=== PATIENT | female | born 1955 | race Caucasian/White ===

== ENCOUNTER 2019-08-17 20:48 | Inpatient (IN) | payer MEDICARE, SELFPAY ==
[2019-08-17 20:58] VITALS: BP 149/74; PULSE 76; RESP 18; TEMP 36.8; O2SAT 99; BMI 42.7
--- NOTE | 2019-08-17 21:02 | W.ED.CHESTPA ---
HPI - Chest Pain General: Chief Complaint: Chest Pain Stated Complaint: CHEST PAIN Time Seen by Provider: 08/17/19 20:51 History of Present Illness: HPI narrative: 63 yo female who presents to the emergency room via EMS with a complaint of chest pain. Couple of days ago she had an episode of chest pain that was very brief she took a sublingual nitro and it resolved in about 10 minutes. She had another episode this morning that resolved after 2 nitro and 20 minutes. Throughout the day she seemed to be okay and then had a third episode this evening she had no relief with nitro ambulance came and they gave her aspirin and 2 more nitro and then eventually the pain went away but she still has a sense of heaviness in her chest. She is diabetic has sleep apnea and is previously had known coronary artery disease she has had stents in the past. She sees a animal rescuer in [place] said she seen him last about a year ago and had an angiogram but there was no intervention. She is not had a stress test since then. She had radiation of the pain into her back up into her jaw and arms, no dyspnea or diaphoresis. All of these episodes have increased in intensity per her report. Associated symptoms: Deny abdominal pain, dyspnea, fever(s), nausea or vomiting Review of Systems Const: Denies: fever, chills, body aches, change in appetite, fatigue or malaise ENMT: Denies: throat pain, ear pain, nasal discharge or nasal congestion Card: Reports: chest pain and shortness of breath on exertion; Denies: edema or shortness of breath when lying down Resp: Denies: shortness of breath, productive cough or non-productive cough GI: Denies: abdominal pain, nausea, vomiting, vomiting blood, coffee grounds in vomit, diarrhea, constipation, bloating, blood in stool or black tarry stool : Denies: flank pain, difficulty urinating, painful urination, urinary frequency or urinary urgency Skin/Breast: Denies: rash or itching [facility] ED PFSH: Medical History (Updated 08/19/19 @ 07:11 by Donta Figueroa DO) Biventricular ICD (implantable cardioverter-defibrillator) in place COPD (chronic obstructive pulmonary disease) Coronary artery disease Diabetes mellitus Hyperlipidemia Hypertension Morbid obesity Pacemaker Surgical History (Updated 08/17/19 @ 23:24 by Cameron Bob MD) History of cholecystectomy History of heart artery stent Family History (Updated 08/17/19 @ 23:24 by Cameron Bob MD) Other CAD (coronary artery disease) Social History (Updated 08/17/19 @ 23:24 by Cameron Bob MD) Smoking and tobacco status: former smoker Alcohol intake: never Substance/Drug Use: never Physical Exam Const: COMMON NORMALS: no apparent distress GENERAL APPEARANCE: cooperative and comfortable ORIENTATION/CONSCIOUSNESS: Yes awake, Yes oriented to person, Yes oriented to place and Yes oriented to time HENMT: COMMON NORMALS: normocephalic, head/scalp atraumatic, hearing grossly normal bilaterally, external ears normal, EAC's normal, TM's normal bilaterally, nasal mucous membranes and turbinates normal, moist oral mucous membranes and oropharynx normal HEAD & SCALP: normocephalic and atraumatic NOSE: nasal mucous membranes and turbinates normal EXTERNAL EAR: Yes external ears normal EXTERNAL AUDITORY CANAL: EAC's normal TYMPANIC MEMBRANE: TM's normal bilaterally Eye: COMMON NORMALS: PERRL, EOMs intact bilaterally, conjunctivae normal and no scleral icterus CONJUNCTIVA: Yes conjunctivae normal PUPIL: Yes PERRL Neck/C-Spine: COMMON NORMALS: full ROM, no lymphadenopathy, supple and no JVD Lymph: LYMPHATIC: no lymphadenopathy noted and no lymphedema noted Resp: COMMON NORMALS: normal respiratory effort, no retractions, no use of accessory muscles and clear to auscultation bilaterally AUSCULTATION: clear to auscultation bilaterally Cardio: COMMON NORMALS: no JVD, regular rate, regular rhythm and no murmurs RATE: regular rate RHYTHM: regular rhythm GI: COMMON NORMALS: soft to palpation and no hepatosplenomegaly AUSCULTATION: Yes normoactive bowel sounds PALPATION: Yes soft, No tender, No guarding and Yes no hepatosplenomegaly Extremity: COMMON NORMALS: normal to inspection, normal capillary refill, no clubbing, cyanosis or edema, no calf tenderness and no pedal edema Neuro: SENSORIUM/ORIENTATION: Yes oriented to person, Yes oriented to place and Yes oriented to time Skin: COMMON NORMALS: no rashes or lesions noted GENERAL SKIN EXAM: no rashes or lesions noted Course Vital Signs: Vital signs: Vital Signs Temperature 97.8 F 08/19/19 04:00 Pulse Rate 61 08/19/19 04:00 Respiratory Rate 16 08/19/19 04:00 Blood Pressure 112/69 08/19/19 04:00 Pulse Oximetry 93 08/19/19 04:00 MDM - Chest Pain MDM Narrative: Medical decision making narrative: We will go ahead and admit for atypical chest pain given her known history of coronary disease and relief of symptoms with nitro, additionally she has been having the symptoms at rest and the degree of intensity has been increasing. Lab Data: Labs: Lab Results 08/17/19 08/17/19 08/17/19 Range/Units 21:06 21:06 21:06 WBC 6.2 (4.0-10.0) 10^3/ uL RBC 3.51 L (4.1-5.3) 10^6/u L Hgb 10.1 L (11.5-15.3) g/dL Hct 30.9 L (37.0-47.0) % MCV 88.0 (81-99) fL MCH 28.8 (28.0-34.0) pg MCHC 32.7 (30.0-36.0) g/dL RDW 14.1 (12.1-15.1) % Plt Count 144 (130-400) 10^3/c mm MPV 10.9 H (7.4-10.4) fL Neut % (Auto) 58.5 % Lymph % (Auto) 30.6 % [place] % (Auto) 8.1 % Eos % (Auto) 1.6 % Baso % (Auto) 0.6 % Neut # (Auto) 3.6 (1.8-7.7) 10^3/u L Lymph # (Auto) 1.9 (0.8-4.8) 10^3/u L [place] # (Auto) 0.5 (0.2-0.9) 10^3/u L Eos # (Auto) 0.1 (0.0-0.8) 10^3/u L Baso # (Auto) 0.0 (0.0-0.1) 10^3/u L Nucleated RBC % (a uto) 0 % Nucleated RBCs # 0.0 /100WBC Sodium 139 (136-145) mmol/L Potassium 3.5 (3.5-5.1) mmol/L Chloride 99 (98-107) mmol/L Carbon Dioxide 28 (22-29) mmol/L Anion Gap 15.5 (5-19) BUN 9 (8-23) mg/dL Creatinine 0.9 (0.5-0.9) mg/dL GFR Calculation 63.2 L (90-130) mL/min Glucose 136 H (65-115) mg/dL Calculated Osmolal ity 286 (285-295) mOsm/k g Calcium 8.7 (8.5-10.5) mg/dL Total Bilirubin 1.0 (0.15-1.2) mg/dL AST 87 H (0-32) U/L ALT 60 H (0-33) U/L Alkaline Phosphata se 70 (35-105) IU/L Troponin T Baselin e 15 H (0-10) ng/mL NT-Pro-B Natriuret Pep (0-125) pg/mL Total Protein 6.8 (6.6-8.7) g/dL Albumin 3.8 (3.5-5.2) g/dL Globulin 3.0 (1.3-4.6) g/dL 04/18/20 Range/Units 21:06 WBC (4.0-10.0) 10^3/ uL RBC (4.1-5.3) 10^6/u L Hgb (11.5-15.3) g/dL Hct (37.0-47.0) % MCV (81-99) fL MCH (28.0-34.0) pg MCHC (30.0-36.0) g/dL RDW (12.1-15.1) % Plt Count (130-400) 10^3/c mm MPV (7.4-10.4) fL Neut % (Auto) % Lymph % (Auto) % [place] % (Auto) % Eos % (Auto) % Baso % (Auto) % Neut # (Auto) (1.8-7.7) 10^3/u L Lymph # (Auto) (0.8-4.8) 10^3/u L [place] # (Auto) (0.2-0.9) 10^3/u L Eos # (Auto) (0.0-0.8) 10^3/u L Baso # (Auto) (0.0-0.1) 10^3/u L Nucleated RBC % (a uto) % Nucleated RBCs # /100WBC Sodium (136-145) mmol/L Potassium (3.5-5.1) mmol/L Chloride (98-107) mmol/L Carbon Dioxide (22-29) mmol/L Anion Gap (5-19) BUN (8-23) mg/dL Creatinine (0.5-0.9) mg/dL GFR Calculation (90-130) mL/min Glucose (65-115) mg/dL Calculated Osmolal ity (285-295) mOsm/k g Calcium (8.5-10.5) mg/dL Total Bilirubin (0.15-1.2) mg/dL AST (0-32) U/L ALT (0-33) U/L Alkaline Phosphata se (35-105) IU/L Troponin T Baselin e (0-10) ng/mL NT-Pro-B Natriuret Pep 717 H (0-125) pg/mL Total Protein (6.6-8.7) g/dL Albumin (3.5-5.2) g/dL Globulin (1.3-4.6) g/dL Discharge Plan Discharge Patient Disposition: Admitted As Inpatient Admit Provider: Cameron Bob Clinical Impression: Chest pain, Coronary artery disease, Diabetes mellitus, COPD (chronic obstructive pulmonary disease), Hypertension Condition: Stable Interventions: ED Discharge Assessment Last Done: 08/17/19 22:35 Discharge Date/Time: 08/17/19 22:36 Coding Level of Care Code ED Training Systems Officer for [facility] Fwd Exam Comprehensive
--- NOTE | 2019-08-17 21:03 | XRR_ITS ---
PROCEDURE INFORMATION: Exam: XR Chest, 1 View Exam date and time: 08/17/2019 9:13 PM Age: 63 years old Clinical indication: Cough and dyspnea; Additional info: Dyspnea/cough TECHNIQUE: Imaging protocol: XR of the chest Views: 1 view. COMPARISON: No relevant prior studies available. FINDINGS: Tubes, catheters and devices: AICD. Lungs: COPD, interstitial prominence, and mild basilar airspace disease. Pleural space: Questionable small left pleural effusion. Heart/Mediastinum: Borderline cardiomegaly. Bones/joints: Mild degenerative change. XR/XR chest 1V portable [id number] IMPRESSION: COPD, interstitial prominence, and mild basilar airspace disease.
[2019-08-17] MEDS: nitroglycerin 1 gm/inch oint Pkt 1 INCH TOPICAL (21:09)
[2019-08-17 21:19] LABS: Basophils % 0.6 %; Eosinophils # 0.1 10^3/uL (0.0-0.8); Eosinophils % 1.6 %; Hematocrit 30.9 % (37.0-47.0); Hemoglobin 10.1 g/dL (11.5-15.3); Lymphocytes # 1.9 10^3/uL (0.8-4.8); Lymphocytes % 30.6 %; Mean Corpuscular HGB Conc 32.7 g/dL (30.0-36.0); Mean Corpuscular Hemoglobin 28.8 pg (28.0-34.0); Mean Platelet Volume 10.9 fL (7.4-10.4); Monocytes # 0.5 10^3/uL (0.2-0.9); Monocytes % 8.1 %; Neutrophils # 3.6 10^3/uL (1.8-7.7); Neutrophils % 58.5 %; Nucleated Red Blood Cells % 0 %; Platelet Count 144 10^3/cmm (130-400); Red Blood Count 3.51 10^6/uL (4.1-5.3); Red Cell Distribution Width 14.1 % (12.1-15.1); White Blood Count 6.2 10^3/uL (4.0-10.0)
[2019-08-17 21:34] LABS: Alanine Aminotransferase 60 U/L (0-33); Albumin Level 3.8 g/dL (3.5-5.2); Alkaline Phosphatase 70 IU/L (35-105); Anion Gap 15.5 (5-19); Aspartate Amino Transferase 87 U/L (0-32); Blood Urea Nitrogen 9 mg/dL (8-23); Calcium 8.7 mg/dL (8.5-10.5); Carbon Dioxide 28 mmol/L (22-29); Chloride 99 mmol/L (98-107); Glomerular Filtration Rate 63.2 mL/min (90-130); Glucose 136 mg/dL (65-115); Osmolality Calculated 286 mOsm/kg (285-295); Potassium 3.5 mmol/L (3.5-5.1); Sodium 139 mmol/L (136-145); Total Protein 6.8 g/dL (6.6-8.7)
[2019-08-17 21:35] LABS: Troponin(5th) Baseline 15 ng/mL (0-10)
--- NOTE | 2019-08-17 22:31 | PC.NURSE ---
Called report to Christel on Med-Surg
[2019-08-17 22:35] VITALS: BP 148/101; PULSE 73; RESP 20; O2SAT 99
[2019-08-17 22:48] VITALS: BP 158/92; PULSE 69; RESP 18; TEMP 36.9; O2SAT 98
[2019-08-17 23:00] VITALS: RESP 20
--- NOTE | 2019-08-17 23:03 | ECG_ITS ---
Measurements Intervals [place] Rate: 69 P: 64 [place]: 142 QRS: 76 QRSD: 125 T: 38 QT: 436 QTc: 470 ELECTRONIC VENTRICULAR PACEMAKER ABNORMAL RHYTHM ECG No previous ECG available for comparison Electronically Signed On 08-18-2019 12:25:18 CDT by Marnie Lovett M.D. [id number]
--- NOTE | 2019-08-17 23:12 | P.HP_ITS ---
Providers/Chief Complaint Admitting Physician: Cameron Bob MD Chief Complaint: CHEST PAIN History of Present Illness Arlene Castillo is a 63 year old female with a past medical history of CAD status post stenting x2, first stent was in 2001 for diagonal artery, second cardiac catheterization in 2011 with severe in-stent stenosis in the first diagonal artery with stenting again which I presume? (Is not clear on cardiac catheter report), mild to moderate disease in the mid LAD, codominant left circumflex artery. She has a history of CHF, last ejection fraction 35%, status post ICD and pacemaker placement, pacemaker placement for V. tach, [id number]-[id number] type 2 diabetes mellitus, 2 L oxygen pendant for COPD, hypertension, hyperlipidemia, who presents to the emergency room due to complaints of chest pain. Patient states that she has been having on and off chest pain for the last 6 months, she sees a drill runner helper in [place], last seen about 6 months ago, they were plans on doing an outpatient stress test and echocardiogram in September. Patient states that this morning, at roughly 10 AM, she was taking her medications, when she start developed left-sided substernal chest pain sharp, pressure-like, which radiated to her left neck, left jaw, lasted about 15 minutes, relieved with nitro, associated lightheadedness. Patient had another episode of chest pain at roughly 7 PM tonight, again left-sided, substernal, rating to the left jaw, left neck, now also down the left arm, this time she took 2 nitros with significant reduction of the pain but it persisted, so she called her daughter who told her to call 911, when EMS arrived she received another nitroglycerin, still has some lingering chest pain in the EMS, received 325 mg of aspirin, when she arrived in the emergency room, was still having some persistent left-sided chest pain so she was put on a nitro paste, and her symptoms abated. Currently is symptom-free. Patient states that her chest pain seems similar to when she had her stents placed, but her chest pain is never radiated to the neck or the jaw which is new. Patient states that she has a history of heart failure, at baseline she is short of breath less than 50 feet, recently she has been feeling more short of breath than her usual, no lower extremity edema, no cough, no fevers, no orthopnea, no paroxysmal nocturnal dyspnea, no travel, known exposure to covid19. Patient does have a pacemaker placement for V. tach, states that last time she saw her drill runner helper, they interrogated the pacemaker, and found she had a couple of V. tach episodes that did not meet criteria for shocking, no history of shocking, no history of palpitations, no lightheadedness Review of Systems Const: Denies: fever, chills, fatigue or malaise Eyes: Denies: change in vision or blurry vision ENMT: Denies: nasal congestion Card: Reports: chest pain, lightheadedness and shortness of breath on exertion; Denies: palpitations, irregular heart rhythm, edema or syncope Resp: Denies: shortness of breath, productive cough, non-productive cough or wheezing GI: Denies: abdominal pain, nausea, vomiting, vomiting blood, diarrhea, constipation, blood in stool or black tarry stool : Denies: flank pain, painful urination or urinary frequency Musc: Denies: neck pain or back pain Skin/Breast: Denies: rash Neuro: Denies: headache, dizziness or vertigo Psych: Denies: anxiety or depression Endo: Denies: excessive urination or excessive thirst Medications/Allergies Home Medications Medication Instructions Recorded Confirmed Last Taken Type Unable to Assess 08/17/19 08/17/19 Unknown History Allergies Allergy/AdvReac Type Severity Reaction Status Date / Time codeine Allergy Unknown Verified 08/17/19 21:02 Additional Medication Information Additional Medication Information: Aspirin 81 mg once daily Lipitor 40 mg p.o. bedtime Celexa 20 mg p.o. twice daily Vitamin B12 thousand micrograms once daily Lasix 40 mg p.o. daily Gabapentin 300 mg 3 times daily Lisinopril hydrochlorothiazide 20 25 mg p.o. daily Lisinopril 10 mg daily Metoprolol succinate 100 mg daily Singulair 10 mg p.o. every afternoon Prilosec Albuterol Vitamin D, vitamin D3, vitamin C, fish oil, omega-3 PFSH Acute PFSH: Medical History (Updated 08/17/19 @ 23:27 by Cameron Bob MD) Biventricular ICD (implantable cardioverter-defibrillator) in place COPD (chronic obstructive pulmonary disease) Coronary artery disease Diabetes mellitus Hyperlipidemia Hypertension Pacemaker Surgical History (Updated 08/17/19 @ 23:24 by Cameron Bob MD) History of cholecystectomy History of heart artery stent Family History (Updated 08/17/19 @ 23:24 by Cameron Bob MD) Other CAD (coronary artery disease) Social History (Updated 08/17/19 @ 23:24 by Cameron Bob MD) Smoking and tobacco status: former smoker Alcohol intake: never Substance/Drug Use: never Vitals/I&O/Wt Last Vital Signs Temp 98.5 F 08/17/19 22:48 Pulse 69 08/17/19 22:48 Resp 18 08/17/19 22:48 BP 158/92 08/17/19 22:48 Pulse Ox 98 08/17/19 22:48 Weight last 48 hrs Weight 111.13 kg Physical Exam Const: COMMON NORMALS: no apparent distress and oriented x3 GENERAL APPEARANCE: cooperative and comfortable HENMT: COMMON NORMALS: normocephalic HEAD & SCALP: normocephalic Eye: COMMON NORMALS: PERRL, EOMs intact bilaterally and no papilledema GENERAL EYE: normal appearance of both eyes PUPIL: Yes PERRL DIRECT OPHT HALMOSCOPY: Yes no papilledema Neck/C-Spine: COMMON NORMALS: full ROM, no lymphadenopathy, no JVD and thyroid normal THYROID: thyroid normal Lymph: LYMPHATIC: no lymphadenopathy noted Resp: COMMON NORMALS: normal respiratory effort, no retractions, no use of accessory muscles and clear to auscultation bilaterally AUSCULTATION: clear to auscultation bilaterally Cardio: COMMON NORMALS: no JVD, regular rate, regular rhythm, S1 normal heart sound, S2 normal heart sound, no gallops, no clicks and no murmurs RATE: regular rate RHYTHM: regular rhythm HEART SOUNDS: S1 normal and S2 normal GI: COMMON NORMALS: normal to inspection, nondistended, normoactive bowel sounds, soft to palpation, non-tender and no hepatosplenomegaly PALPATION: Yes soft and Yes no hepatosplenomegaly Extremity: COMMON NORMALS: normal to inspection, full ROM and no pedal edema Neuro: COMMON NORMALS: oriented x3, CN's II-XII intact bilaterally, moves all extremities and no focal motor deficits Psych: COMMON NORMALS: mental status grossly normal, thought process normal and cooperative THOUGHT PROCESS: normal thought process Data : 08/17/19 21:06 04/18/20 21:06 A&P Assessment and plan (1) Chest pain: -Chest pain does sound cardiac in nature -CAD status post stenting x2-irst stent was in 2001 for diagonal artery, second cardiac catheterization in 2011 with severe in-stent stenosis in the first diagonal artery with stenting again which I presume? (Is not clear on cardiac catheter report), mild to moderate disease in the mid LAD, codominant left circumflex artery -Has hypertension, hyperlipidemia, type 2 diabetes mellitus -History of CHF, systolic, former smoker -Baseline troponin 15, EKG shows no acute ST-T wave changes Plan: -Admit to cardiac floor -Telemetry monitoring -Monitor for chest pain -Aspirin, statin, beta-eric -Nitro for chest pain -We will order cardiac echocardiogram -Serial EKGs, serial troponins -Stress test on Monday Status: Acute (2) Coronary artery disease: Status: Acute (3) COPD (chronic obstructive pulmonary disease): 4 L oxygen dependent Status: Acute (4) Diabetes mellitus: Status: Acute (5) Hyperlipidemia: Status: Acute (6) Hypertension: Status: Acute (7) V-tach: Status: Acute (8) Systolic CHF with reduced left ventricular function, NYHA class 3: -Last EF was 35%, not in exacerbation Status: Acute (9) Biventricular ICD (implantable cardioverter-defibrillator) in place: Status: Acute Attestations Medical Necessity Statement*: Patient requires hospitalization, inpatient, greater than 2 midnights, for chest pain Coding Level of Care Code Acute Look Out [employer] Fire Watcher for [facility] Fwd Diagnoses Chest pain R07.9 Coronary artery disease I25.10 COPD (chronic obstructive pulmonary disease) J44.9 Diabetes mellitus E11.9 Hyperlipidemia E78.5 Hypertension I10 V-tach I47.2 Systolic CHF with reduced left ventricular function, NYHA class 3 I50.20 Biventricular ICD (implantable cardioverter-defibrillator) in place Z95.810
[2019-08-17 23:32] LABS: NT Pro B Type Natriuretic Pept 717 pg/mL (0-125)
[2019-08-17] MEDS: ipratropium-albuterol 3 mL Neb INHALATION (23:47)
[2019-08-17 23:49] VITALS: PULSE 91; RESP 18; O2SAT 98
[2019-08-18] VITALS (17 sets, daily range): BP systolic 91–154; BP diastolic 52–86; PULSE 68–92; RESP 16–22; TEMP 36.7–37.2; O2SAT 95–99
[2019-08-18] MEDS: nitroglycerin 1 gm/inch oint Pkt 1 INCH TOPICAL (00:05)
[2019-08-18] MEDS: guaiFENesin 600 mg Tablet PO ×3 (00:05→17:52)
[2019-08-18] MEDS: enoxaparin 40 mg/0.4 mL Syringe SUBCUT ×2 (00:05→22:52)
[2019-08-18] MEDS: magnesium oxide 400 mg tablet PO ×3 (00:05→17:52)
[2019-08-18] MEDS: sodium chloride 0.9% 1,000 ML 100 ML IV ×2 (00:06→13:45)
[2019-08-18] MEDS: atorvastatin 40 mg Tablet PO ×2 (00:06→20:29)
[2019-08-18 00:56] LABS: Troponin(5th) Baseline 15 ng/mL (0-10)
--- NOTE | 2019-08-18 03:03 | ECG_ITS ---
Measurements Intervals [place] Rate: 71 P: 71 [place]: 160 QRS: 91 QRSD: 114 T: 29 QT: 423 QTc: 461 ELECTRONIC VENTRICULAR PACEMAKER ABNORMAL RHYTHM ECG No previous ECG available for comparison Electronically Signed On 08-18-2019 12:25:11 CDT by Marnie Lovett M.D. [email or web address]
[2019-08-18 03:16] LABS: Troponin 5 2HR 15.69 ng/mL (0-10); Troponin 5 2HR Delta 0.69 ABS# (0-10)
[2019-08-18 07:01] LABS: Glucose Point of Care 147 mg/dL (70-110)
[2019-08-18 07:21] LABS: Basophils % 0.3 %; Eosinophils # 0.2 10^3/uL (0.0-0.8); Eosinophils % 2.6 %; Hematocrit 33.2 % (37.0-47.0); Hemoglobin 10.7 g/dL (11.5-15.3); Lymphocytes % 30.2 %; Mean Corpuscular HGB Conc 32.2 g/dL (30.0-36.0); Mean Corpuscular Hemoglobin 29.2 pg (28.0-34.0); Mean Corpuscular Volume 90.7 fL (81-99); Monocytes # 0.5 10^3/uL (0.2-0.9); Monocytes % 7.3 %; Neutrophils # 3.8 10^3/uL (1.8-7.7); Neutrophils % 58.8 %; Nucleated Red Blood Cells % 0 %; Platelet Count 168 10^3/cmm (130-400); Red Blood Count 3.66 10^6/uL (4.1-5.3); Red Cell Distribution Width 14.4 % (12.1-15.1); White Blood Count 6.5 10^3/uL (4.0-10.0)
[2019-08-18 07:36] LABS: Estmated Average Glucose 140; Hemoglobin A1C 6.5 % (4.0-6.0)
[2019-08-18 07:44] LABS: Alanine Aminotransferase 57 U/L (0-33); Albumin Level 4.1 g/dL (3.5-5.2); Alkaline Phosphatase 76 IU/L (35-105); Anion Gap 17.8 (5-19); Aspartate Amino Transferase 77 U/L (0-32); Blood Urea Nitrogen 8 mg/dL (8-23); Carbon Dioxide 29 mmol/L (22-29); Chloride 98 mmol/L (98-107); Globulin 3.1 g/dL (1.3-4.6); Glomerular Filtration Rate 63.2 mL/min (90-130); Glucose 155 mg/dL (65-115); Osmolality Calculated 291 mOsm/kg (285-295); Potassium 3.8 mmol/L (3.5-5.1); Sodium 141 mmol/L (136-145); Total Bilirubin 1.3 mg/dL (0.15-1.2); Total Protein 7.2 g/dL (6.6-8.7)
[2019-08-18 07:45] LABS: Magnesium 1.4 mg/dL (1.7-2.3); Phosphorus 4.3 mg/dL (2.5-4.5); Troponin 5 6HR 15.75 ng/mL (0-10); Troponin 5 6HR Delta 0.75 ng/L (0-12)
[2019-08-18 07:46] LABS: Cholesterol 160 mg/dL (0-200); HDL Cholesterol 32 mg/dL (60-100); LDL Cholesterol Calculated 70 mg/dL (50-129); LDL HDL Ratio 2.19 RATIO (0.00-3.22); Triglycerides 290 mg/dL (0-150)
--- NOTE | 2019-08-18 07:54 | PM.PN ---
Subjective Subjective: Interval history: Chart reviewed, VSS, pending med rec. Echo ordered, stress testing tomorrow. Patient resting in bed, reports some heaviness in her chest but overall feels better. States that she follows up with renewable energy division manager Dr. Gisell Kapoor at [facility] and is inquiring about possible transfer there, unlikely since no acute need for intervention and stress test is pending for tomorrow, chest pain has resolved after NGT paste. Medications: Reviewed: Yes Medication Review Details: Active Medications Generic Name Dose Route Start Last Admin Trade Name Freq PRN Reason Stop Dose Admin Acetaminophen 650 mg 08/17/19 22:48 Tylenol PO Q6H PRN Mild/Mod Pain Or Temp >/= 101 Albuterol/Ipratrop ium 3 ml 08/18/19 04:00 Duoneb INHALATION Q4H.RESPIRATORY S CH Aspirin 81 mg 08/18/19 09:00 Aspirin Ec PO DAILY LILIA Atorvastatin Calci um 40 mg 08/17/19 22:48 08/18/19 00:06 Lipitor PO 40 mg BEDTIME LILIA Administration Citalopram Hydrobr omide 20 mg 08/18/19 09:00 Celexa PO BID LILIA Cyanocobalamin 1,000 mcg 08/18/19 09:00 Vitamin B-12 PO DAILY LILIA Dextrose 25 ml 08/17/19 22:48 D50w IVP ONCE PRN hypoglycemia prot ocol Protocol Dextrose 50 ml 08/17/19 22:48 D50w IVP PRN PRN hypoglycemia prot ocol Protocol Enoxaparin Sodium 40 mg 08/17/19 22:48 08/18/19 00:05 Lovenox SUBCUT 40 mg Q24H LILIA Administration Furosemide 40 mg 08/18/19 08:00 Lasix PO DAILY@0800 LILIA Gabapentin 300 mg 08/18/19 09:00 Neurontin PO TID LILIA Glucagon 1 mg 08/17/19 22:48 Glucagen IM ONCE PRN Adult Acute Hypog lycemia Prot. Protocol Guaifenesin 600 mg 08/17/19 23:30 08/18/19 00:05 Mucinex PO 600 mg BID LILIA Administration Hydrochlorothiazid e 25 mg 08/18/19 09:00 Hctz PO DAILY LILIA Dextrose 500 mls @ 100 mls /hr 08/17/19 22:48 D5w IV ONCE PRN Adult Acute Hypog lycemia Prot Protocol Sodium Chloride 1,000 mls @ 100 m ls/hr 08/17/19 22:48 08/18/19 00:06 Sodium Chloride 0.9% IV 100 mls/hr .Q10H LILIA Administration Insulin Aspart 0 unit 08/18/19 08:00 Novolog SUBCUT TIDWM LILIA Protocol Isosorbide Mononit rate 60 mg 08/18/19 09:00 Imdur PO DAILY [facility] Lisinopril 30 mg 08/18/19 09:00 Prinivil PO DAILY LILIA Lorazepam 0.5 mg 08/17/19 22:48 Ativan PO Q6H PRN ANXIETY Magnesium Oxide 400 mg 08/17/19 23:30 08/18/19 00:05 Magox PO 400 mg BID LILIA Administration Metoprolol Succina te 100 mg 08/18/19 09:00 Toprol Xl PO DAILY [facility] Montelukast Sodium 10 mg 08/18/19 18:00 Singulair PO QPM [facility] Nitroglycerin 0.4 mg 08/17/19 22:48 Nitrostat SUBLINGUAL Q5M PRN CHEST PAIN Ondansetron HCl 4 mg 08/17/19 22:48 Zofran IVP Q8H PRN vomiting, or N/V if npo Pantoprazole Sodiu m 40 mg 08/18/19 09:00 Protonix PO DAILY [facility] Vitamin D 2,000 unit 08/18/19 09:00 Vitamin D3 PO DAILY [facility] codeine Allergy (Verified 08/17/19 21:02) Unknown Vitals/I&O/Wt Last Vital Signs Temp 98.4 F 08/18/19 04:00 Pulse 84 08/18/19 04:00 Resp 18 08/18/19 04:00 BP 146/72 08/18/19 04:00 Pulse Ox 97 08/18/19 04:00 08/17/19 08/18/19 08/18/19 22:59 06:59 14:59 Output Total 600 / 600 Balance -600 / -600 Weight last 48 hrs Weight 111.13 kg Physical Exam Const: COMMON NORMALS: no apparent distress and oriented x3 GENERAL APPEARANCE: cooperative and comfortable NUTRITIONAL APPEARANCE: obese morbidly obese ORIENTATION/CONSCIOUSNESS: Yes awake HENMT: COMMON NORMALS: normocephalic, head/scalp atraumatic, hearing grossly normal bilaterally and moist oral mucous membranes HEAD & SCALP: normocephalic and atraumatic Eye: COMMON NORMALS: PERRL, EOMs intact bilaterally and conjunctivae normal CONJUNCTIVA: Yes conjunctivae normal PUPIL: Yes PERRL Neck/C-Spine: COMMON NORMALS: full ROM GENERAL: Yes normal visual inspection and Yes trachea midline Resp: COMMON NORMALS: normal respiratory effort, no retractions, no use of accessory muscles and clear to auscultation bilaterally EFFORT & INSPECTION: Yes able to speak in complete sentences, Yes symmetric chest movement and No tachypneic AUSCULTATION: clear to auscultation bilaterally Cardio: COMMON NORMALS: regular rate, regular rhythm (paced rhythm), S1 normal heart sound, S2 normal heart sound and no murmurs RATE: regular rate RHYTHM: regular rhythm (paced rhythm) HEART SOUNDS: S1 normal and S2 normal GI: COMMON NORMALS: normal to inspection, nondistended, normoactive bowel sounds, soft to palpation and non-tender INSPECTION: Yes central obesity PALPATION: Yes soft Extremity: COMMON NORMALS: normal to inspection, full ROM, no clubbing, cyanosis or edema and no pedal edema Neuro: COMMON NORMALS: oriented x3, moves all extremities, no focal motor deficits and no sensory deficits noted Psych: COMMON NORMALS: mental status grossly normal, thought process normal, cooperative, affect normal and speech normal SPEECH: Yes normal speech THOUGHT PROCESS: normal thought process Skin: COMMON NORMALS: no rashes or lesions noted, no jaundice, no petechiae and no mottling GENERAL SKIN EXAM: no rashes or lesions noted Data : 08/18/19 06:55 08/18/19 06:55 A&P Assessment and plan (1) Chest pain: -presented with what sounds like typical chest pain, alleviated after receiving NTG -has significant CAD hx with prior stenting of diagonal artery x 2; known mild to moderate disease in mid LAD -additional risk factors for ACS including HTN, HLD, Morbid obesity, DM -troponins noted with no significant delta; paced rhythm on ECGs -telemetry monitoring -VSS; continue to monitor -CXR noted: COPD, mild interstitial prominence, mild basilar airspace disease, borderline cardiomegaly -Echo: EF=63%, normal diastolic function, no RWMA, trace TR -f/u with Cardiology in [place] (Dr. Gisell Kapoor) -DEDRA -continue ASA, BB, Imdur, ACEi, statin -noted A1c, lipid panel -stress testing in AM, NPO after midnight Status: Acute Qualifiers: Chest pain type: unspecified Qualified Code(s): R07.9 - Chest pain, unspecified (2) Coronary artery disease: -as noted above Status: Chronic Qualifiers: Associated angina: angina presence unspecified Coronary Disease-Associated Artery/Lesion type: unspecified vessel or lesion type [place] vs. transplanted heart: [place] heart Qualified Code(s): I25.10 - Atherosclerotic heart disease of [place] coronary artery without angina pectoris (3) Systolic CHF with reduced left ventricular function, NYHA class 3: -has known chronic systolic CHF, s/p AICD with last known EF=35% -repeat Echo as noted above -no acute exacerbation; continue oral diuretics -BNP-717 -replace Mg, keep K > 4, Mg > 2 Status: Chronic (4) COPD (chronic obstructive pulmonary disease): -has known oxygen-dependent COPD, 2 L baseline requirement -no acute exacerbation -f/u CXR report Status: Chronic Qualifiers: COPD type: unspecified COPD Qualified Code(s): J44.9 - Chronic obstructive pulmonary disease, unspecified (5) Diabetes mellitus: -has known NIDDM type II; A1c at goal (6.2) -Accucheks, ISS, hypoglycemia precautions especially when NPO -consistent carb diet Status: Acute Qualifiers: Diabetes mellitus complication status: with other specified complication Diabetes mellitus superintendent terminal insulin use: without superintendent terminal use Diabetes mellitus type: type 2 Qualified Code(s): E11.69 - Type 2 diabetes mellitus with other specified complication (6) Hypertension: -VSS, continue to monitor -continue oral antihypertensives Status: Chronic Qualifiers: Hypertension type: essential hypertension Qualified Code(s): I10 - Essential (primary) hypertension (7) Hyperlipidemia: -lipid panel noted -continue statin Status: Chronic Qualifiers: Hyperlipidemia type: unspecified Qualified Code(s): E78.5 - Hyperlipidemia, unspecified (8) Morbid obesity: -BMI-43 kg/m2 Status: Chronic Additional A&P Information -Elevated LFTs, continue to trend, previous LFTs seem to be wnl -Normocytic anemia; baseline Hg is around 12 -GI ppx with PPI -DVT ppx with Lovenox -Dispo: home -Code status: FULL code Attestations Medical Necessity Statement*: Patient requires hospitalization for continued management of chest pain pending stress testing. Time Spent in Patient Care: Greater than 35 minutes (>than 50% of time spent in counselling and/or direct pt care on unit). Coding Level of Care Code Acute Transport Manager for [facility] Fwd Exam Comprehensive Diagnoses Chest pain R07.9 Chest pain type: unspecified Coronary artery disease I25.10 Associated angina: angina presence unspecified Coronary Disease-Associated Artery/Lesion type: unspecified vessel or lesion type [place] vs. transplanted heart: [place] heart Systolic CHF with reduced left ventricular function, NYHA class 3 I50.20 COPD (chronic obstructive pulmonary disease) J44.9 COPD type: unspecified COPD Diabetes mellitus E11.69 Diabetes mellitus complication status: with other specified complication Diabetes mellitus nursing home insulin use: without superintendent terminal use Diabetes mellitus type: type 2 Hypertension I10 Hypertension type: essential hypertension Hyperlipidemia E78.5 Hyperlipidemia type: unspecified Morbid obesity E66.01
[2019-08-18] MEDS: ipratropium-albuterol 3 mL Neb INHALATION ×4 (08:18→19:57)
[2019-08-18] MEDS: cholecalciferol (vitamin D3) 1,000 unit Tablet 2000 UNIT PO (09:00)
[2019-08-18] MEDS: gabapentin 300 mg Capsule PO ×3 (09:00→20:29)
[2019-08-18] MEDS: citalopram 20 mg Tablet PO ×2 (09:01→17:52)
[2019-08-18] MEDS: lisinopril 10 mg Tablet 30 MG PO (09:01)
[2019-08-18] MEDS: omega-3 fatty acids 1,000 mg Capsule 1000 MG PO ×2 (09:01→17:52)
[2019-08-18] MEDS: pantoprazole DR 40 mg Tablet PO (09:01)
[2019-08-18] MEDS: cyanocobalamin 1,000 mcg Tablet 1000 MCG PO (09:01)
[2019-08-18] MEDS: isosorbide mononitrate ER 60 mg Tablet PO (09:02)
[2019-08-18] MEDS: hydroCHLOROthiazide 25 mg Tablet PO (09:02)
[2019-08-18] MEDS: aspirin 81 mg EC Tablet PO (09:02)
[2019-08-18] MEDS: metoprolol succinate ER (24 HR) 100 mg Tablet PO (09:02)
[2019-08-18] MEDS: FUROsemide 40 mg Tablet PO (09:02)
[2019-08-18] MEDS: magnesium sulfate premix 2 GM/50 ML PIGGYBACK IV (09:08)
[2019-08-18 10:43] LABS: Glucose Point of Care 199 mg/dL (70-110)
[2019-08-18 16:42] LABS: Glucose Point of Care 146 mg/dL (70-110)
[2019-08-18] MEDS: montelukast sodium 10 mg Tablet PO (17:52)
[2019-08-18 21:26] LABS: Glucose Point of Care 212 mg/dL (70-110)
--- NOTE | 2019-08-18 22:48 | USCV_ITS ---
Arlene Castillo Age: 63 Gender: F : 1955 Exam Date: 08/18/2019 07:25 Ordering Phys: Cameron Bob MD Technologist: Cristy Flores Exam Location: [facility] [place] Indication: Chest pain BP: 146 / 72 HR: 70 Rhythm: Technical Quality: Technically difficult study MEASUREMENTS (Male / Female) Normal Values 2D ECHO LV Chamber Size 3.6 cm RV Chamber Size 1.5 cm LVOT Diameter 2.0 cm LV Ejection Fraction MOD 2C 61.4 % LV Ejection Fraction 2C AL 64.1 % LA Diameter 4.2 cm LA Width 2.9 cm LA Height 4.4 cm RA Width 1.7 cm RA Height 4.2 cm Aorta at Sinotubular Diameter 2.6 cm M-MODE LV Diastolic Diameter MM 5.9 cm 4.2 - 5.9 / 3.9 - 5.3 cm LV Systolic Diameter MM 4.7 cm LV Ejection Fraction MM Teich 41.9 % IVS Diastolic Thickness MM 1.5 cm 0.6 - 1.0 / 0.6 - 0.9 cm IVS Systolic Thickness MM 2.0 cm LVPW Diastolic Thickness MM 1.7 cm 0.6 - 1.0 / 0.6 - 0.9 cm LVPW Systolic Thickness MM 1.4 cm Aortic Annulus Diameter 2.9 cm LA Ao Ratio MM 1.5 MV E Point Septal Separation 1.2 cm DOPPLER AV Peak Velocity 140.0 cm/s LVOT Peak Velocity 84.0 cm/s AV Area Cont Eq vti 2.1 cm squared AV Area Cont Eq pk 2.0 cm squared MV Area PHT 4.0 cm squared Mitral E to A Ratio 1.3 MV E' Velocity 10.0 cm/s Mitral E to MV E' Ratio 10.0 Mitral E to LV E' Lateral Ratio 10.1 Mitral E to LV E' Septal Ratio 9.9 TV Peak E Velocity 67.0 cm/s Right Atrial Pressure 3.0 mmHg FINDINGS Left Ventricle Normal left ventricular size and systolic function, with no regional wall motion abnormalities. Left ventricular ejection fraction is estimated at 63 %. Normal diastolic function. Right Ventricle Normal right ventricular size and systolic function. Pacemaker wire visualized in the right ventricle. Right Atrium Normal right atrial size. Right atrial pressure estimated at 3 mmHg. Left Atrium Normal left atrial size. Mitral Valve Structurally normal mitral valve. Trace mitral valve regurgitation. Aortic Valve Aortic valve not well visualized. No aortic valve stenosis. No aortic valve regurgitation. Tricuspid Valve Trace tricuspid valve regurgitation. Pulmonic Valve Pulmonic valve not well visualized. Pericardium No pericardial effusion. Aorta Aorta not well visualized. CONCLUSIONS 1. Normal left ventricular size and systolic function, with no regional wall motion abnormalities. Left ventricular ejection fraction is estimated at 63 %. Normal diastolic function. 2. Normal right ventricular size and systolic function. 3. No significant valvular abnormality. 4. No prior similar studies to compare. Marnie Lovett MD (Electronically Signed) Final Date: 18 August 2019 12:34 S
[2019-08-19] VITALS (9 sets, daily range): BP systolic 102–143; BP diastolic 65–76; PULSE 61–78; RESP 16–18; TEMP 36.6–36.9; O2SAT 93–98
[2019-08-19] MEDS: sodium chloride 0.9% 1,000 ML 100 ML IV (00:43)
[2019-08-19 06:36] LABS: Magnesium 1.7 mg/dL (1.7-2.3)
[2019-08-19 06:38] LABS: Alanine Aminotransferase 49 U/L (0-33); Albumin Level 3.7 g/dL (3.5-5.2); Alkaline Phosphatase 68 IU/L (35-105); Aspartate Amino Transferase 62 U/L (0-32); Globulin 3.1 g/dL (1.3-4.6); Total Bilirubin 1.2 mg/dL (0.15-1.2); Total Protein 6.8 g/dL (6.6-8.7)
[2019-08-19 06:51] LABS: Glucose Point of Care 149 mg/dL (70-110)
--- NOTE | 2019-08-19 08:11 | ECG_ITS ---
NAME OF STUDY: LEXISCAN SESTAMIBI STRESS TEST INDICATION: Chest Pain, PROCEDURE: At the baseline, the EKG revealed normal sinus rhythm with poor R wave progression. Nonspecific IVCD. Low voltage complexes in the limb leads. The baseline blood pressure was 128/68 mm Hg with a heart rate of 67 beats/min. Lexiscan was infused over a period of 20 seconds. A total of 0.4 milligrams of Lexiscan was infused. The stress phase was continued for a total of 5 minutes. Heart rate at the end of the stress phase was 77 with a blood pressure 143/73. The EKG at the peak infusion revealed no significant changes. Sestamibi was injected 20 seconds after the Lexiscan infusion. Blood pressure at the end of the recovery phase was 114/75 with a heart rate of 74 per minute. CONCLUSION: 1. No significant EKG changes with the LexiScan infusion 2. No LexiScan induced chest pain or cardiac arrhythmia 3. Normal blood pressure and heart rate response 4. Sestamibi/sestamibi perfusion scan pending; see separate report. Electronically Signed On 08-20-2019 9:53:25 CDT by Katie Jackson M.D. [email or web address]
--- NOTE | 2019-08-19 08:13 | PC.NURSE ---
off unit to nuc med
[2019-08-19] MEDS: regadenoson 0.4 Mg/5 ml Syringe IVP (08:54)
--- NOTE | 2019-08-19 10:19 | PM.DCS ---
Discharge Providers Date of Admission: 08/17/19 22:05 Date of Discharge: August 19, 2019 Attending Provider at Admission: Cameron Bob MD Attending Provider at Discharge: Sherlyn Cintron MD Primary Care Provider: BHUMI Lovell Diagnoses at Discharge Discharge Diagnosis (1) Chest pain: Status: Resolved Problem details: -presented with what sounds like typical chest pain, alleviated after receiving NTG -has significant CAD hx with prior stenting of diagonal artery x 2; known mild to moderate disease in mid LAD -additional risk factors for ACS including HTN, HLD, Morbid obesity, DM -troponins noted with no significant delta; paced rhythm on ECGs -telemetry monitoring -VSS; continue to monitor -CXR noted: COPD, mild interstitial prominence, mild basilar airspace disease, borderline cardiomegaly -Echo: EF=63%, normal diastolic function, no RWMA, trace TR -f/u with Cardiology in [place] (Dr. Gisell Kapoor) -DEDRA -continue ASA, BB, Imdur, ACEi, statin -noted A1c, lipid panel -stress testing negative for significant coronary ischemia (2) Coronary artery disease: Status: Chronic (3) Systolic CHF with reduced left ventricular function, NYHA class 3: Status: Chronic Problem details: -has known chronic systolic CHF, s/p AICD with last known EF=35% -repeat Echo as noted above -no acute exacerbation; continue oral diuretics -BNP-717 -replace Mg, keep K > 4, Mg > 2 (4) COPD (chronic obstructive pulmonary disease): Status: Chronic Problem details: -has known oxygen-dependent COPD, 2 L baseline requirement -no acute exacerbation -CXR noted (5) Diabetes mellitus: Status: Acute Problem details: -has known NIDDM type II; A1c at goal (6.2) -Accucheks, ISS, hypoglycemia precautions especially when NPO -consistent carb diet (6) Hypertension: Status: Chronic Problem details: -VSS, continue to monitor -continue oral antihypertensives (7) Hyperlipidemia: Status: Chronic Problem details: -lipid panel noted -continue statin Qualifiers: Hyperlipidemia type: unspecified Qualified Code(s): E78.5 - Hyperlipidemia, unspecified (8) Morbid obesity: Status: Chronic Problem details: -BMI-43 kg/m2 Reason for Visit Reason for Visit: Reason For Visit: CHEST PAIN Hospital Course Hospital Course: Patient was admitted to the cardiac stepdown unit and placed on telemetry monitoring. Secondary to her history of known CAD and presenting symptoms she had stress testing done today, this was not available over the weekend. Patient has been chest pain-free since receiving nitroglycerin paste. Troponins have been 15->15.75 with no significant delta change noted, no acute ischemic changes noted on EKG or telemetry. She has been hemodynamically stable, afebrile, tolerating oral intake without difficulty. She had an echo done showing ejection fraction of 63% with normal diastolic function, and nuclear stress test is negative for any significant ischemia. She wants to continue to follow-up with her escalator attendant Dr. Gisell Kapoor at [facility] in [place]. She had inquired about possible transfer but due to no acute need for intervention at this time, this was not possible. She will need to follow-up with her primary care provider within 1 week. She is advised to seek medical attention immediately should her symptoms recur. Patient provided with copy of imaging to provide to her escalator attendant. Discharge Summary: -Patient to follow-up with primary care provider within 1 week -Patient to continue to follow-up with her escalator attendant Dr. Gisell Kapoor at [facility] as scheduled Physical Exam Const: COMMON NORMALS: no apparent distress and oriented x3 GENERAL APPEARANCE: cooperative and comfortable NUTRITIONAL APPEARANCE: obese morbidly obese ORIENTATION/CONSCIOUSNESS: Yes awake HENMT: COMMON NORMALS: normocephalic, head/scalp atraumatic, hearing grossly normal bilaterally and moist oral mucous membranes HEAD & SCALP: normocephalic and atraumatic Eye: COMMON NORMALS: PERRL, EOMs intact bilaterally and conjunctivae normal CONJUNCTIVA: Yes conjunctivae normal PUPIL: Yes PERRL Neck/C-Spine: COMMON NORMALS: full ROM GENERAL: Yes normal visual inspection and Yes trachea midline Resp: COMMON NORMALS: normal respiratory effort, no retractions, no use of accessory muscles and clear to auscultation bilaterally EFFORT & INSPECTION: Yes able to speak in complete sentences, Yes symmetric chest movement and No tachypneic AUSCULTATION: clear to auscultation bilaterally Cardio: COMMON NORMALS: regular rate, regular rhythm (paced rhythm), S1 normal heart sound, S2 normal heart sound and no murmurs RATE: regular rate RHYTHM: regular rhythm (paced rhythm) HEART SOUNDS: S1 normal and S2 normal GI: COMMON NORMALS: normal to inspection, nondistended, normoactive bowel sounds, soft to palpation and non-tender INSPECTION: Yes central obesity PALPATION: Yes soft Extremity: COMMON NORMALS: normal to inspection, full ROM, no clubbing, cyanosis or edema and no pedal edema Neuro: COMMON NORMALS: oriented x3, moves all extremities, no focal motor deficits and no sensory deficits noted Psych: COMMON NORMALS: mental status grossly normal, thought process normal, cooperative, affect normal and speech normal SPEECH: Yes normal speech THOUGHT PROCESS: normal thought process Skin: COMMON NORMALS: no rashes or lesions noted, no jaundice, no petechiae and no mottling GENERAL SKIN EXAM: no rashes or lesions noted Discharge Data Data Completed and Pending: Completed Studies During Hospitalization Category Date Time Status XR chest 1V danette ble [id number] Stat Exams 08/17/19 21:03 Completed CV echo complete* [id number] Routine Ultrasound 08/18/19 22:48 Completed Pending at discharge Category Date Time Status Sestamibi Stress Test Request Routi ne Exams 08/17/19 22:48 Stop Req Sestamibi Stress Test Request Routi ne Exams 08/19/19 08:11 Ordered Magnesium AM LABS Lab 08/20/19 04:00 Ordered NM ky perf SPECT r/s* [id number] Routin e Nuc Med 08/19/19 22:48 Ordered Labs from last 24 hours 08/19/19 08/19/19 08/19/19 06:14 05:35 05:35 POC Glucose 149 Magnesium 1.7 Total Bilirubin 1.2 Direct Bilirubin 0.30 AST 62 H ALT 49 H Alkaline Phosphata se 68 Total Protein 6.8 Albumin 3.7 Globulin 3.1 08/18/19 08/18/19 08/18/19 21:07 16:05 10:39 POC Glucose 212 146 199 Magnesium Total Bilirubin Direct Bilirubin AST ALT Alkaline Phosphata se Total Protein Albumin Globulin Vitals: Last Vital Signs Temp 97.8 F 08/19/19 04:00 Pulse 78 08/19/19 08:55 Resp 16 08/19/19 04:00 BP 143/73 08/19/19 08:55 Pulse Ox 93 08/19/19 04:00 Discharge Plan Discharge Patient Disposition: Home, Self-Care Condition: Stable Prescriptions: New isosorbide mononitrate 60 mg Tablet Extended Release 24 Hr 60 mg PO DAILY 30 Days Qty: 30 RF: 0 Continued montelukast 10 mg tablet 10 mg RF: 0 furosemide [Lasix] 40 mg Tablet 40 mg RF: 0 Lipitor 40 mg Tablet 40 mg PO DAILY RF: 0 cyanocobalamin (vitamin B-12) [Vitamin B-12] 1,000 mcg Tablet 1,000 mcg PO DAILY RF: 0 Celexa 20 mg Tablet 20 mg RF: 0 Vitamin C 1,000 mg Tablet RF: 0 metoprolol succinate 100 mg Tablet Extended Release 24 Hr PO DAILY RF: 0 lisinopril 10 mg Tablet 10 mg PO DAILY RF: 0 gabapentin 300 mg Capsule 300 mg PO TID RF: 0 lisinopril-hydrochlorothiazide 20-25 mg Tablet DAILY RF: 0 albuterol sulfate 5 mg/mL Solution For Nebulization PRN RF: 0 Vitamin D3 10 mcg (400 unit) Capsule RF: 0 Prilosec 10 mg Susp,Delayed Release For Recon PO BID RF: 0 Fish Oil 1,000 mg (120 mg-180 mg) Capsule PO RF: 0 [place]-3 350 mg-235 mg- 90 mg-597 mg Capsule,Delayed Release(Dr/Ec) PO RF: 0 Discharge Orders: Discharge Order (Routine); Ordered 08/19/19 Ordered By: Sherlyn Cintron Referrals: Araceli Esparza DPM [Family Provider] - 4-7 days (Post hospital discharge follow up. Had nuclear stress testing done. ) Discharge Diet: Cardiac and Diabetic Discharge Activity: Resume usual activity Discharge Attestations Time Spent in Discharge Care*: greater than 30 min Specific Discharge Activities: Specific discharge activities: educating patient, discussing with case management rn/social workers/dc planners, documenting/other paperwork and evaluating patient/reviewing data Status at Discharge: Cognitive status at discharge: cognitively intact, Behavioral status at discharge: cooperative, Functional status at discharge: independent ambulation Overall status at discharge: patient is back to baseline Quality Metrics Clinical Quality Measures During this hospital stay, did patient experience: None Coding Level of Care Code Acute Stamp Press Operator for g Fwd Exam Comprehensive Diagnoses Chest pain R07.9 Coronary artery disease I25.10 Systolic CHF with reduced left ventricular function, NYHA class 3 I50.20 COPD (chronic obstructive pulmonary disease) J44.9 Diabetes mellitus E11.9 Hypertension I10 Hyperlipidemia E78.5 Hyperlipidemia type: unspecified Morbid obesity E66.01
[2019-08-19] MEDS: cyanocobalamin 1,000 mcg Tablet 1000 MCG PO (10:36)
[2019-08-19] MEDS: omega-3 fatty acids 1,000 mg Capsule 1000 MG PO (10:37)
[2019-08-19] MEDS: aspirin 81 mg EC Tablet PO (10:37)
[2019-08-19] MEDS: guaiFENesin 600 mg Tablet PO (10:38)
[2019-08-19] MEDS: magnesium oxide 400 mg tablet PO (10:38)
[2019-08-19] MEDS: cholecalciferol (vitamin D3) 1,000 unit Tablet 2000 UNIT PO (10:38)
[2019-08-19] MEDS: hydroCHLOROthiazide 25 mg Tablet PO (10:39)
[2019-08-19] MEDS: metoprolol succinate ER (24 HR) 100 mg Tablet PO (10:39)
[2019-08-19] MEDS: citalopram 20 mg Tablet PO (10:39)
[2019-08-19] MEDS: pantoprazole DR 40 mg Tablet PO (10:39)
[2019-08-19] MEDS: lisinopril 10 mg Tablet 30 MG PO (10:39)
[2019-08-19] MEDS: isosorbide mononitrate ER 60 mg Tablet PO (10:39)
[2019-08-19] MEDS: FUROsemide 40 mg Tablet PO (10:40)
[2019-08-19] MEDS: gabapentin 300 mg Capsule PO ×2 (10:40→14:23)
[2019-08-19] MEDS: ipratropium-albuterol 3 mL Neb INHALATION ×2 (11:39→15:58)
[2019-08-19 11:51] LABS: Glucose Point of Care 196 mg/dL (70-110)
--- NOTE | 2019-08-19 22:48 | NMCV_ITS ---
NM ky perf SPECT r/s* [id number] Arlene Castillo Age: 63 Gender: F : 1955 Exam Date: 08/19/2019 22:48 Ordering Phys: Cameron Bob MD Technologist: DAVID Maldonado Exam [facility]: [facility] Indications: CHEST PAIN STRESS TEST [facility] IMAGE PROTOCOL Rest/Stress 1 Lexiscan Day Radiopharmaceutical Dose (mCi) Administration Site Administered by Rest: Tc-99m 11.0 IV DAVID Sprague Sestamibi Stress:Tc-99m 32.9 IV DAVID Sprague Sestamibi Rest: 19-Aug-2019 60 Discovery 630 Stress: 19-Aug-2019 30 Discovery 630 0.4mg Lexiscan. Supine position only as patient was unable to lay prone. SPECT RESULTS Technical Quality: Excellent Raw Data Analysis: Normal Image Corrections: No attenuation or motion correction applied Summed Stress Score: 1 Summed Rest Score: 4 Summed Difference Score: 0 PERFUSION FINDINGS Patchy areas of slightly decreased tracer uptake were noted in the anterior inferior wall region, towards the apex. No significant reversibility was noted in these regions FUNCTIONAL RESULTS (calculated via Gated SPECT) Stress Image LV EF (%): 53 Stress EDV (mL):148 TID: 0.96 Stress ESV (mL):69 FUNCTIONAL FINDINGS: Segmental wall motion analysis revealing no gross wall motion normalities. IMPRESSIONS 1. Myocardial perfusion imaging revealing some patchy areas of persistent decreased tracer uptake in the anterior wall and inferior wall regions, most likely are present attenuation artifact. 2. Normal LV ejection fraction of 53%. 3. LV wall motion analysis revealing no gross wall motion normalities. 4. Slightly elevated LV volume, end-systolic volume of 69 mL. No significant coronary ischemia, based on the above findings Dr Katie Jackson MD FACC (Electronically Signed) Final Date: 19 August 2019 13:01 S
== END 2019-08-19 17:04 | disposition home or self-care (01) | DRG 303 ==
LOC: ER 22:32 → MEDSURG 08-18 07:43
PROVIDERS: Admitting Provider Family Medicine; Emergency Provider Family Medicine; Family Provider Nurse Practitioner; Visit Provider Family Medicine
DX: I25.10 Atherosclerotic heart disease of native coronary artery without angina pectoris (principal); Z68.41 Body mass index [BMI] 40.0-44.9, adult; I50.22 Chronic systolic (congestive) heart failure; E87.5 Hyperkalemia; E11.9 Type 2 diabetes mellitus without complications; E66.01 Morbid (severe) obesity due to excess calories; I11.0 Hypertensive heart disease with heart failure; J44.9 Chronic obstructive pulmonary disease, unspecified; Z99.81 Dependence on supplemental oxygen; Z95.5 Presence of coronary angioplasty implant and graft; Z95.810 Presence of automatic (implantable) cardiac defibrillator; Z87.891 Personal history of nicotine dependence
CPT/HCPCS: 12345; 36415; 36416; 71045; 78452; 80053; 80061; 80076; 82962; 83036; 83735; 83880; 84100; 84484; 85025; 93005; 93017; 93306; 94640; 94660; 94664; 96372; 99282; A9500; J1650; J1815; J2785; J3475; J7030